=== PATIENT | female | born 1970 | race Caucasian/White ===

== ENCOUNTER 2019-07-31 15:21 | Emergency (ER) | payer SELFPAY ==
[2019-07-31] MEDS ORDERED: LIDOCAINE 1% MPF 5 ML VIAL ONE (15:41)
--- NOTE | 2019-07-31 16:12 | ER ---
Nurse's Notes [facility] Name: Nicholas Aaron Age: 48 yrs Sex: Female : 1970 Arrival Date: 07/31/2019 Time: 15:24 Bed 6 Private MD: Diagnosis: Cutaneous abscess of back [any part, except buttock]-left trapezius Presentation: 07/30 15:35 Chief complaint: Patient states: " I have had a cyst here for about 9 months but it ph never really bothered me, then on Wed it became red, swollen and painful. Dr Beard called me in some Bactrim but I started having some side effects from it and stopped taking it so Dr Beard told me to come here." Abscess/cyst noted to L trapezius area, pt denies fever N/V. Coronavirus screen: Patient denies a cough. Patient denies shortness of breath or difficulty breathing. Patient denies measured and/or subjective temperature greater than 100.4F prior to today's visit. Patient denies travel on a cruise ship or to a country the [facility] currently lists as an affected area. Patient denies contact with known and/or suspected case of COVID-19. Ebola Screen: No symptoms or risks identified at this time. Initial Sepsis Screen: Does the patient meet any 2 criteria? No. Patient's initial sepsis screen is negative. Does the patient have a suspected source of infection? Yes: Skin breakdown/wound. Risk Assessment: Do you want to hurt yourself or someone else? Patient reports no desire to harm self or others. Onset of symptoms was July 31, 2019. 15:35 Method Of Arrival: Ambulatory ph 15:35 Acuity: SUKHDEV 4 ph Historical: - Allergies: 15:40 PENICILLINS; ph 15:40 Levofloxacin; ph - Home Meds: 15:40 None [Active]; ph - PMHx: 15:40 None; ph - Immunization history:: Adult Immunizations unknown. - Social history:: Smoking status: Patient denies any tobacco usage or history of. Screenin:39 Abuse screen: Denies threats or abuse. Nutritional screening: No deficits noted. Tuberculosis screening: No symptoms or risk factors identified. Fall Risk None identified. Assessment: 15:45 General: Appears in no apparent distress. Pain: Denies pain. Neuro: Level of ah Consciousness is awake, alert, Oriented to person, place, time, situation. Cardiovascular: Heart tones S1 S2 present Capillary refill < 3 seconds Patient's skin is warm and dry. Respiratory: Airway is patent Respiratory effort is even, unlabored, Respiratory pattern is regular, symmetrical. GI: No signs and/or symptoms were reported involving the gastrointestinal system. GI: Abdomen is non-distended. : No signs and/or symptoms were reported regarding the genitourinary system. EENT: No signs and/or symptoms were reported regarding the EENT system. Derm: Abscess located on left clavicle has purulent drainage, is red, is raised, was lanced by patient prior to arrival. Vital Signs: 15:35 BP 148 / 92; Pulse 88; Resp 18; Temp 98.0; Pulse Ox 100% on R/A; ph ED Course: 15:24 Patient arrived in ED. mr 15:28 Bakari Talavera NP is PHCP. pm1 15:28 Antoni Kiser MD is Attending Physician. pm1 15:29 Ky Childress RN is Primary Nurse. 7 15:39 Triage completed. ph 15:40 Arm band placed on Patient placed in an exam room, on a stretcher. ph 16:37 No provider procedures requiring assistance completed. Assist provider with I \\T\\ D: Set ah up I\\T\\D tray. Performed by Bakari Talavera NP Wound packed. iodoform gauze, Dressing with Patient tolerated well. Patient did not have IV access during this emergency room visit. Dressings: non-adherent dressing x 1 left clavicle DEEJAY Villegas packed with packing. 16:39 Patient has correct armband on for positive identification. Placed in gown. Bed in low ah position. Call light in reach. Administered Medications: No medications were administered Outcome: 16:12 Discharge ordered by . pm1 16:39 Discharged to home ambulatory. 16:39 Condition: good 16:39 Discharge instructions given to patient, Instructed on discharge instructions, follow up and referral plans. medication usage, Demonstrated understanding of instructions, follow-up care, medications, wound care, Prescriptions given X 2. 16:40 Patient left the ED. Signatures: aDri Ozuna mr Lakshmi Olvera RN RN Bakari Talavera NP NETWORK SPECIALIST pm1 Childress, Jahala, RN RN jl7 Aly, Sofie, RN RN ah
--- NOTE | 2019-07-31 16:13 | EDPHYS ---
Physician Documentation [facility] Name: Nicholas Aaron Age: 48 yrs Sex: Female : 1970 Arrival Date: 07/31/2019 Time: 15:24 Bed 6 Private MD: ED Physician Antoni Kiser HPI: 07/30 16:05 This 48 yrs old Female presents to ER via Ambulatory with complaints of pm1 Abscess. 16:05 The patient presents with an abscess of the left trapezius. Description: raised, pm1 swollen. Onset: The symptoms/episode began/occurred Present for 9 months but on Wednesday got red and swollen. Dr. Beard called in prescription for Bactrim DS. While taking the Bactrim patient reports improvement in the abscess but could not tolerate the side effects that she was feeling from the Bactrim, body aches. Stopped taking Bactrim on Wednesday and the side effects have resolved. Possible cause(s): unknown. Associated signs and symptoms: Pertinent negatives: discharge, fever. Modifying factors: the symptoms are alleviated by prescription meds, Bactrim, the symptoms are aggravated by touching. Severity of symptoms: in the emergency department the symptoms are unchanged. The patient has experienced similar episodes in the past, She has had cysts on her legs in the past, tetanus less than 5 years aold. Historical: - Allergies: 15:40 PENICILLINS; ph 15:40 Levofloxacin; ph - Home Meds: 15:40 None [Active]; ph - PMHx: 15:40 None; ph - Immunization history:: Adult Immunizations unknown. - Social history:: Smoking status: Patient denies any tobacco usage or history of. ROS: 16:05 Constitutional: Negative for fever, chills, and weight loss, Cardiovascular: Negative pm1 for chest pain, palpitations, and edema, Respiratory: Negative for shortness of breath, cough, wheezing, and pleuritic chest pain, Abdomen/GI: Negative for abdominal pain, nausea, vomiting, diarrhea, and constipation, MS/Extremity: Negative for injury and deformity. 16:05 Skin: Positive for abscess, of the left trapezius. 16:05 All other systems are negative. Exam: 16:05 Constitutional: This is a well developed, well nourished patient who is awake, alert, pm1 and in no acute distress. Head/Face: Normocephalic, atraumatic. 16:05 Chest/axilla: Normal chest wall appearance and motion. Nontender with no deformity. No lesions are appreciated. 16:05 Back: No spinal tenderness. No costovertebral tenderness. Full range of motion. MS/ Extremity: Pulses equal, no cyanosis. Neurovascular intact. Full, normal range of motion. 16:05 Cardiovascular: Exam negative for acute changes, Rate: normal, Pulses: no pulse deficits are appreciated. 16:05 Respiratory: Exam negative for acute changes, respiratory distress, shortness of breath. 16:05 Skin: Appearance: normal except for affected area, abscess, that is small, of the left trapezius, No surrounding cellulitis, pointing, or drainage. Positive for fluctuance, cellulitis, is not appreciated. 16:05 Neuro: Exam negative for acute changes, Orientation: is normal, Motor: is normal, moves all fours. Vital Signs: 15:35 BP 148 / 92; Pulse 88; Resp 18; Temp 98.0; Pulse Ox 100% on R/A; ph Procedures: 16:05 I \T\ D: Incision and drainage was performed for an abscess of the left left trapezius pm1 Prepped with Betadine, Anesthetized with 5 ml's 1% Lidocaine. Incised with #11 blade. Drained small amount serosanguinous fluid. Loculations removed. Abscess cavity explored. Packed with iodoform gauze, Dressing: sterile 4x4 gauze, the patient tolerated the procedure well. 16:05 Infected sebaceous cyst 0.5 cm deep and cavity approximately the size half a marble 0.5 pm1 x 0.5 x 0.5 cm. MDM: 15:33 Patient medically screened. pm1 16:05 Data reviewed: vital signs. Data interpreted: Pulse oximetry: on room air is 100 %. pm1 Interpretation: normal. Counseling: I had a detailed discussion with the patient and/or guardian regarding: the historical points, exam findings, and any diagnostic results supporting the discharge/admit diagnosis, the need for outpatient follow up, for definitive care, a general surgeon. 16:05 ED course: Patient offered pain medication in the ER. She refused. pm1 18:16 ED course: INSOLE STIFFENER Aware reviewed. 11/30/2018 last prescription for narcotics. pm1 Administered Medications: No medications were administered Disposition: 17:29 Co-signature as Attending Physician, Antoni Kiser MD. rn Disposition: 07/31/19 16:12 Discharged to Home. Impression: Cutaneous abscess of back [any part, except buttock] - left trapezius. - Condition is Stable. - Discharge Instructions: Skin Abscess, Incision and Drainage. - Prescriptions for Doxycycline Hyclate 100 mg Oral Tablet - take 1 tablet by ORAL route every 12 hours; 20 tablet. Tylenol- Codeine #3 300-30 mg Oral Tablet - take 2 tablets by ORAL route every 6 hours As needed; 20 tablet. - Work release form, Medication Reconciliation Form, Thank You Letter, Antibiotic Education, Prescription Opioid Use form. - Follow up: Emergency Department; When: As needed; Reason: Worsening of condition. Follow up: Private Physician; When: 2 - 3 days; Reason: Recheck today's complaints, Continuance of care, Re-evaluation by your physician. - Problem is new. - Symptoms have improved. Signatures: Antoni Kiser MD MD rn Hall, Patricia RN RN Bakari Talavera NP APPIAN DEVELOPER pm1 Sofie Aly RN RN Corrections: (The following items were deleted from the chart) 16:40 16:12 07/31/2019 16:12 Discharged to Home. Impression: Cutaneous abscess of back [any ah part, except buttock] - left trapezius. Condition is Stable. Forms are Medication Reconciliation Form, Thank You Letter, Antibiotic Education, Prescription Opioid Use. Follow up: Emergency Department; When: As needed; Reason: Worsening of condition. Follow up: Private Physician; When: 2 - 3 days; Reason: Recheck today's complaints, Continuance of care, Re-evaluation by your physician. Problem is new. Symptoms have improved. pm1
[2019-07-31 16:55] VITALS: BP 148/92; TEMP 98; O2SAT 100
== END 2019-07-31 16:40 | disposition home or self-care (01) ==
LOC: ER 15:21
PROC: 0J970ZZ Drainage of Back Subcutaneous Tissue and Fascia, Open Approach (ICD-10-PCS; principal; 2019-07-31)
DX: L02.212 Cutaneous abscess of back [any part, except buttock and flank] (principal); Z88.0 Allergy status to penicillin; Z88.1 Allergy status to other antibiotic agents
CPT/HCPCS: 99283